=== PATIENT | male | born 1975 | race Caucasian/White ===

== ENCOUNTER 2016-06-01 16:00 | Emergency (ER) | payer SELFPAY ==
[~2016-06-01] VITALS: Wt 78.0 kg
[2016-06-01] MEDS ORDERED: TETRACAINE 0.5% 15 ML OPH LEFT EYE ONE (17:30)
[2016-06-01] MEDS ORDERED: FLUORESCEIN STRIP LEFT EYE ONE (17:30)
[2016-06-01] MEDS ORDERED: OPHTHALMIC IRRIG SOLUTION 120 ML LEFT EYE ONE (18:30)
[2016-06-01] MEDS ORDERED: ERYTOPOI LEFT EYE (18:58)
[2016-06-01 19:12] VITALS: BP 144/78; PULSE 109; RESP 18; TEMP 97.8
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
== END 2016-06-01 19:14 | disposition home or self-care (01) ==
LOC: FTE 16:00
DX: S05.02XA Injury of conjunctiva and corneal abrasion without foreign body, left eye, initial encounter (principal); W22.8XXA Striking against or struck by other objects, initial encounter; Y92.9 Unspecified place or not applicable
CPT/HCPCS: 99283